=== PATIENT | male | born 1955 | race Caucasian/White ===

== ENCOUNTER 2020-09-30 17:59 | Emergency (ER) | payer BC ==
[2020-09-30] MEDS ORDERED: HYDROcodone 5MG/APAP 325MG 1 EA TAB PO ONE (18:25)
[2020-09-30] MEDS ORDERED: ONDANSETRON ODT 8 MG TAB SL ONE (18:26)
[2020-09-30] MEDS ORDERED: DICYCLOMINE HCL 20 MG TAB PO ONE (18:26)
--- NOTE | 2020-09-30 19:23 | CT ---
EXAM: Abdomen/Pelvis w/Contrast CLINICAL INDICATION: Abdominal pain. COMPARISON: There is no previous study for comparison. TECHNIQUE: The CT scan was done using contiguous axial 5 mm postcontrast sections through the abdomen and pelvis including IV contrast. This exam was performed according to our departmental dose-optimization program, which includes automated exposure control, adjustment of the mA and/or kV according to patient size and/or use of iterative reconstruction technique. FINDINGS: The visualized portions of the lung bases are clear. The gallbladder contains gallstones. The liver, kidneys, adrenal glands, spleen, and pancreas are unremarkable. The aorta contains atherosclerotic calcifications without evidence of aneurysm. The appendix is normal. There are no dilated loops of small bowel. There is no free air, free fluid, or abscess. IMPRESSION: 1. No evidence of an acute intra-abdominal process. 2. Cholelithiasis. Electronically signed by: Mauricio Gordon MD 09/30/2020 7:22 PM [employer]
--- NOTE | 2020-09-30 20:00 | ED.PDOC ---
History of Present Illness - General Chief Complaint: GI Problem Stated Complaint: abdominal pain Time Seen by Provider: 09/30/20 18:25 Information Source: patient, RN notes reviewed, Vital Signs reviewed Exam Limitations: no limitations Additional Information: The patient is a 65 year old male with PMH significant for CAD who presents to the ED with abdominal pain. He states that this morning he had an episode of pain that woke him from sleep around 0400. He complains of generalized cramping abdominal pain with bilateral low back pain. He denies any fevers but had one episode of vomiting this morning while brushing his teeth around 0700. He also had one episode of diarrhea this morning. His pain resolved through most of the day and then he had recurring pain this evening. He reports two normal bowel movements this afternoon and no additional vomiting. No other complaints at this time. Review of Systems - Review of Systems Constitutional: Denies: chills, fever EENTM: States: no symptoms reported Respiratory: Denies: cough, short of breath Cardiology: Denies: chest pain, palpitations Gastrointestinal/Abdominal: States: abdominal pain, diarrhea, nausea, vomiting Genitourinary: Denies: dysuria, frequency, hematuria Musculoskeletal: States: back pain, muscle pain Skin: States: no symptoms reported Neurological: States: no symptoms reported Endocrine: States: no symptoms reported Hematologic/Lymphatic: States: no symptoms reported All other Systems: Reviewed and Negative Past Medical History (General) - Patient Medical History Hx Cardiac Disorders: Yes - stent, hyperlipidemia Hx Hypertension: Yes Surgical History: other - Vaccination History Hx Tetanus, Diphtheria Vaccination: Yes Hx Influenza Vaccination: No Hx Pneumococcal Vaccination: No - Social History Hx Tobacco Use: No Hx Alcohol Use: No Family Medical History - Family History Mother Family History: Unknown Physical Exam - Physical Exam General Appearance: Alert, Comfortable, No apparent distress Eyes, Ears, Nose, Throat Exam: normal ENT inspection Neck: normal inspection Respiratory: lungs clear, normal breath sounds, no respiratory distress, no accessory muscle use Cardiovascular/Chest: regular rate, rhythm, no edema Peripheral Pulses: 2+ Gastrointestinal/Abdominal: non tender, soft, no organomegaly, no pulsatile mass Rectal Exam: deferred Back Exam: normal inspection, no CVA tenderness, no vertebral tenderness Extremity: normal range of motion Neurologic: no motor/sensory deficits, alert, normal mood/affect, oriented x 3 Progress - Progress Progress: 09/30/20 20:04 Patient reassessed, workup as above. There is no focal abdominal tenderness. There is no acute finding on the CT abdomen pelvis and labs are unremarkable. The patient states that he has been "more active than usual" this week and doing a lot of heavy lifting. May be in part related to msk pain. There is no evidence for acute intra-abdominal process. Will continue outpatient symptomatic management with alternating tylenol/motrin and bentyl. He will monitor symptoms closely and follow up with his PCP, return to ED for worsening or persistent symptoms. - Results/Orders Results/Orders: CT abdomen/Pelvis FINDINGS: The visualized portions of the lung bases are clear. The gallbladder contains gallstones. The liver, kidneys, adrenal glands, spleen, and pancreas are unremarkable. The aorta contains atherosclerotic calcifications without evidence of aneurysm. The appendix is normal. There are no dilated loops of small bowel. There is no free air, free fluid, or abscess. IMPRESSION: 1. No evidence of an acute intra-abdominal process. 2. Cholelithiasis. 09/30/20 18:25 Hold Metformin x 48Hrs [id number] Laboratory Results - last 24 hr 09/30/20 09/30/20 09/30/20 18:35 18:35 18:35 WBC 11.6 H RBC 4.62 L Hgb 13.3 L Hct 38.7 L MCV 83.8 MCH 28.7 MCHC 34.2 RDW 13.5 Plt Count 208 MPV 7.4 Absolute Neuts (auto) 9.50 H Absolute Lymphs (auto) 1.10 Absolute Monos (auto) 0.80 Absolute Eos (auto) 0.00 Absolute Basos (auto) 0.10 Neutrophils % 82.2 H Lymphocytes % 9.3 L Monocytes % 7.3 Eosinophils % 0.3 L Basophils % 0.9 Sodium 138 Potassium 4.6 Chloride 105 Carbon Dioxide 26 Anion Gap 11.6 L BUN 20 H Creatinine 1.30 BUN/Creatinine Ratio 15.4 Random Glucose 194 H Serum Osmolality 283.6 Calcium 9.6 Total Bilirubin 0.7 AST 19 ALT 23 Alkaline Phosphatase 52 Serum Total Protein 7.0 Albumin 4.3 Globulin 2.7 Albumin/Globulin Ratio 1.6 Urine Color Yellow Urine Appearance Clear Urine pH 5.5 Ur Specific [place] >= 1.030 Urine Protein Negative Urine Glucose (UA) Negative Urine Ketones 40 H Urine Blood Trace-intact H Urine Nitrite Negative Urine Bilirubin Negative Urine Urobilinogen 0.2 Ur Leukocyte Esterase Negative Urine RBC 1-3 Urine WBC 3-5 H Ur Epithelial Cells 0 Urine Bacteria Rare Urine Mucus Trace Departure - Departure Clinical Impression: Abdominal pain Qualifiers: Abdominal location: generalized Qualified Code(s): R10.84 - Generalized abdominal pain Time of Disposition: 20:07 Disposition: Discharge to Home or Self Care Condition: Good Departure Forms: ED Discharge - Pt. Copy, Patient Portal Self Enrollment Instructions: Severe Abdominal Pain, Adult (DC) Diet: resume usual diet Activity: increase activity as tolerated Prescriptions: Dicyclomine HCl [Bentyl] 20 mg PO Q6HR PRN #20 tab PRN Reason: Pain Home Medications: Ambulatory Orders Dicyclomine HCl [Bentyl] 20 mg PO Q6HR PRN #20 tab 09/30/20 Additional Instructions: In addition to your usual medications it is recommended to alternate doses of tylenol and ibuprofen. You may take 1000mg of tylenol and 600mg of ibuprofen every 6 hours. It is recommended to alternate between tylenol and ibuprofen every three hours.
[2020-09-30] MEDS ORDERED: HYDROcodone 10MG/APAP 325MG 1 EA TAB PO ONE (20:04)
[2020-09-30 20:22] VITALS: BP 128/83; TEMP 99.1; O2SAT 97
== END 2020-09-30 20:16 | disposition home or self-care (01) ==
LOC: ER 17:59
DX: R10.84 Generalized abdominal pain (principal); K80.20 Calculus of gallbladder without cholecystitis without obstruction; M54.5 Low back pain; R19.7 Diarrhea, unspecified; R11.2 Nausea with vomiting, unspecified; I25.10 Atherosclerotic heart disease of native coronary artery without angina pectoris; I10 Essential (primary) hypertension; E78.5 Hyperlipidemia, unspecified; Z95.5 Presence of coronary angioplasty implant and graft